=== PATIENT | female | born 1950 | race Caucasian/White ===

== ENCOUNTER 2019-04-15 00:18 | Emergency (ER) | payer OTHER ==
[~2019-04-15] VITALS: Ht 170.2 cm; Wt 109.0 kg
[2019-04-15] MEDS ORDERED: SODIUM CHLORIDE FLUSH 10ML SYR IVF ONE (00:30)
[2019-04-15] MEDS ORDERED: MORPHINE SULFATE 4 MG/ML, 1ML IVPush PRN (00:30)
[2019-04-15] MEDS ORDERED: NITROGLYCERIN SINGLE TAB 0.4 MG SL PRN (00:30)
--- NOTE | 2019-04-15 00:30 | NUR ---
Pt BIB [facility] for sudden, dull CP (10/07) starting at 2300 with neck pain. 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 Pt is alet and oriented. Pt now denying CP/neck pain/arm pain. Pt has hx of idiopathic cardiomyopathy, HTN and pacemaker. [facility] placed 18g PIV to right AC. Pt in gown and on full monitors. Call light within reach. Family at bedside.
[2019-04-15] MEDS ORDERED: LISI-167 PO (00:36)
[2019-04-15] MEDS ORDERED: CARV12.5 PO (00:37)
[2019-04-15] MEDS ORDERED: PRAV10TA2 PO (00:37)
[2019-04-15] MEDS ORDERED: FURO-93 PO (00:37)
[2019-04-15 00:48] LABS: BASOPHILS # (AUTO) 0.07 x10^3/uL (0-0.1); BASOPHILS % (AUTO) 1 % (0-1); EOSINOPHILS # (AUTO) 0.09 x10^3/uL (0-0.4); EOSINOPHILS % (AUTO) 1 % (1-7); LYMPHOCYTES # (AUTO) 2.79 x10^3/uL (1-3.4); LYMPHOCYTES % (AUTO) 36 % (22-44); MD NO; MEAN CORPUSCULAR HEMOGLOBIN 28.7 pg (27.0-34.8); MEAN CORPUSCULAR HGB CONC 33.3 g/dL (32.4-35.8); MEAN CORPUSCULAR VOLUME 86.3 fL (80-100); MEAN PLATELET VOLUME 11.2 fL (7.4-10.4); MONOCYTES # (AUTO) 0.81 x10^3/uL (0.2-0.8); MONOCYTES % (AUTO) 10 % (2-9); NEUTROPHILS # (AUTO) 4.02 x10^3/uL (1.8-6.8); NEUTROPHILS % (AUTO) 52 % (42-75); PLATELET COUNT 184 x10^3/uL (130-400); RED BLOOD COUNT 5.02 x10^6/uL (3.82-5.3); RED CELL DISTRIBUTION WIDTH 14.8 % (9.6-15.2)
--- NOTE | 2019-04-15 00:53 | NUR ---
Spoke with MD, plan to hold morphine/nitro d/t pt stating no pain at this time.
[2019-04-15 00:57] LABS: INTERNATIONAL NORMALIZED RATIO 0.93 (0.93-1.1); PROTHROMBIN TIME 9.8 Seconds (9.6-11.5)
[2019-04-15 00:59] LABS: ALBUMIN 3.8 g/dL (3.4-5.0); ANION GAP 9 mmol/L (5-15); CALCIUM 10.4 mg/dL (8.5-10.1); CHLORIDE 111 mmol/L (98-107)
[2019-04-15 01:05] LABS: ALANINE AMINOTRANSFERASE 24 U/L (12-78); ALKALINE PHOSPHATASE 89 U/L (45-117); BILIRUBIN,TOTAL 0.8 mg/dL (0.2-1.0); CREATININE 1.07 mg/dL (0.55-1.02); TOTAL PROTEIN 7.2 g/dL (6.4-8.2); TROPONIN I < 0.015 ng/mL (0.000-0.045)
--- NOTE | 2019-04-15 01:34 | NUR ---
Pt ambulatory to restroom and back. Pt continues to deny CP. Pt on full monitors. Call light within reach. Pt and family aware of plan for admit.
--- NOTE | 2019-04-15 02:20 | NUR ---
Report given to NOMAN Hobbs at [facility] for transfer.
--- NOTE | 2019-04-15 02:41 | NUR ---
[facility] CALLED BACK AND STATES TRANSPORT WILL BE DELAYED DUE TO TOO FEW AMBULANCES AT THIS TIME.
--- NOTE | 2019-04-15 02:42 | NUR ---
Pt alert and resting on gurney. Pt continues to deny CP. Ice water provided. VS retaken. 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
[2019-04-15 02:49] VITALS: BP 120/69
--- NOTE | 2019-04-15 03:19 | NUR ---
At time of transfer, pt alert oriented. NAD. Continuing to deny SOB and CP.
== END 2019-04-15 03:19 | disposition short-term general hospital (02) ==
LOC: ED 01:17 → UNDOADMIN 01:30 → EDIP 01:30 → ED 03:19
DX: R07.2 Precordial pain (principal); I10 Essential (primary) hypertension; E78.00 Pure hypercholesterolemia, unspecified
CPT/HCPCS: 36415; 71045; 80053; 83880; 84484; 85025; 85610; 85730; 93005; 99285